=== PATIENT | female | born 1935 | race Caucasian/White ===

== ENCOUNTER 2016-06-24 21:47 | Emergency (ER) | payer MEDICARE, MEDICAID ==
[~2016-06-24] VITALS: Ht 106.7 cm; Wt 32.0 kg
[~2016-06-24 21:47] MED LIST: AMLO5TAB88 PO; ATOR10TA PO; DOCU-138 PO; ERGO500043 PO; FENO48TA4 PO; FURO-152 PO; IPRA3AMP IH; ISOS60TA4 PO; LOSA25TA12 PO; METO25TA6 PO; NEPVIT PO; OXYB5TAB11 PO; SULF1TAB47 PO; XALAO BOTHEYE
[2016-06-25 00:56] VITALS: BP 100/56
== END 2016-06-25 00:57 ==
LOC: ER 21:49
DX: M25.511 Pain in right shoulder (principal); I73.9 Peripheral vascular disease, unspecified; K74.60 Unspecified cirrhosis of liver; Z95.1 Presence of aortocoronary bypass graft; D64.9 Anemia, unspecified; I10 Essential (primary) hypertension; Z95.5 Presence of coronary angioplasty implant and graft; Z98.890 Other specified postprocedural states; W06.XXXA Fall from bed, initial encounter; Y93.89 Activity, other specified; Y99.8 Other external cause status; Y92.89 Other specified places as the place of occurrence of the external cause
CPT/HCPCS: 71010; 73030; 99285; Z7610